=== PATIENT | female | born 1995 | race Caucasian/White ===

== ENCOUNTER → 2021-11-17 | Outpatient (CLI) | payer OTHER ==
--- NOTE | 2021-11-17 14:49 | P.HPBAR ---
Bariatric H&P - History & Physicial H&P Date: 11/17/21 History & Physicial: Visit/CC: Patient initial contact: Initial weight: Initial weight in pounds: Height: Initial BMI: Last weight: Current weight: Current weight in pounds: Current BMI: Bernie body weight (based on NIH guidelines): Excess body weight loss: The patient is a 26 year-old F who presents for Bariatric Assessment.patient presents today for sleeve gastrectomy consultation. Her BMI is over 40. She states she has pain in her knees. She is scheduled for arthroscopy however her surgeons of epigastric lose weight prior to knee arthroscopy. Surgical - Exam - General well developed, well nourished, no distress - Eyes PERRL - ENT normal pinna - Neck no masses - Respiratory normal expansion - Cardiovascular Rhythm: regular - Abdomen Abdomen: soft, non tender Bariatric Assessment & Plan Plan: morbid obesity. Patient was scheduled for EGD. She'll follow-up in clinic in 12 weeks. Bariatric Checklist Checklist: Plan: Checklist: EGD: 1. Hiatal hernia: 2. H. Pylori: HgbA1c: Vitamin D: Smoking: Primary care physician referral: Psychiatry clearance: Cardiology clearance: Sleep study: Diet journal: VTE risk score: VTE risk level: Rehab needs at discharge:
[2021-11-17 15:06] VITALS: BP 139/89; PULSE 77; TEMP 98.2; BMI 46.3
[2021-11-17 22:59] LABS: HCT 42.3 % (37.2-46.3); HGB 13.4 g/dL (12.0-15.0); MCH 26.8 pg (27.0-32.0); MCHC 31.7 g/dL (32.0-37.0); MCV 84.6 fL (80.0-97.0); Mean Platelet Volume 12.4 fL (9.5-12.2); NRBC Per 100 WBC 0 /100 WBCS (0.0-0.0); Platelet Count 240 X 10*3/uL (140-440); RDW 13.2 % (11.5-14.5); WBC 7.04 X 10*3/uL (4.50-10.00)
[2021-11-17 23:26] LABS: African American GFR (CKD) 123.5 (60.0-200.0); Albumin 4.5 g/dL (3.8-4.9); Albumin/Globulin Ratio 1.59 (1.60-3.17); Anion Gap 7.7 mmol/L (10.00-18.00); BUN/Creat Ratio 15.4 Ratio (12.00-20.00); Calcium 9.4 mg/dL (8.7-10.3); Carbon Dioxide 27.1 mmol/L (20.0-27.5); Globulin 2.8 g/dL (1.6-3.3); Non-African American GFR(CKD) 106.6 (60.0-200.0); Potassium 4.7 mmol/L (3.5-5.5); Total Bilirubin 0.2 mg/dL (0.30-1.20); Total Protein 7.3 g/dL (6.2-8.2)
== END ==
LOC: BARWHC3 14:35
PROVIDERS: ATTEND Surgery
DX: E66.01 Morbid (severe) obesity due to excess calories (principal); Z68.42 Body mass index [BMI] 45.0-49.9, adult; Z88.8 Allergy status to other drugs, medicaments and biological substances
CPT/HCPCS: 80053; 82306; 82607; 82746; 83036; 84425; 85027; 99213